=== PATIENT | female | born 1990 | race Two or more races ===

== ENCOUNTER 2018-03-02 19:15 | Emergency (ER) | payer MEDICAID ==
[~2018-03-02] VITALS: Ht 167.6 cm; Wt 85.0 kg
[2018-03-02] MEDS ORDERED: IBUPROFEN 600MG TABLET PO ONE (19:30)
[2018-03-02 22:10] VITALS: BP 129/81
== END 2018-03-02 22:10 | disposition home or self-care (01) ==
LOC: ER 19:26
DX: M54.5 Low back pain (principal); V49.9XXA Car occupant (driver) (passenger) injured in unspecified traffic accident, initial encounter; Y93.89 Activity, other specified; Y92.89 Other specified places as the place of occurrence of the external cause; Y99.8 Other external cause status
CPT/HCPCS: 72100; 81025; 99284; 99285